=== PATIENT | female | born 1980 | race Caucasian/White ===

== ENCOUNTER 2020-12-15 11:19 | Emergency (ER) | payer BC, SELFPAY ==
--- NOTE | 2020-12-15 11:27 | ED.EAR ---
HPI - Ear Problem General Chief complaint: Ear Stated complaint: Possible Ear Infection Time Seen by Provider: 12/15/20 11:28 Source: patient and RN notes reviewed History of Present Illness HPI Narrative: Patient is a 40-year-old female who presents the urgent care with complaints of left ear pain. Patient states that she has had some sharp shooting pains off and on for the last couple days and then yesterday she noticed pain in front of the left ear and behind the left ear. Patient denies of any other upper respiratory complaints. Denies of fever, chills, nausea, vomiting. Patient has not taken anything [id number] for her pain. No other acute complaints. No acute distress noted. Patient aware of the plan of care. Some parts of this dictation were generated by voice recognition software and may contain typographical and/or grammatical inaccuracies. Related Data Allergies Allergy/AdvReac Type Severity Reaction Status Date / Time cephalexin Allergy Unknown Verified 04/26/16 15:00 Review of Systems Review of Systems: CONSTITUTIONAL: Denies fever, chills, or sweats. EYES: Denies visual changes, redness, or discharge. ENT: Denies rhinorrhea, congestion, sore throat. Reports of left otalgia CARDIOVASCULAR: Denies chest pain, palpitations, or edema. RESPIRATORY: Denies cough or dyspnea. GASTROINTESTINAL: Denies abdominal pain, nausea, vomiting, or diarrhea. GENITOURINARY: Denies dysuria or hematuria. SKIN: Denies rash or itching. MUSCULOSKELETAL: Denies back pain, joint pain, or myalgia. NEUROLOGIC: Denies headache, numbness, or weakness. All other systems reviewed are negative, except as documented in HPI. PMFSH Social History Social History Smoking status: Heavy tobacco smoker Alcohol intake: current Comments At the time of my signature, I reviewed and agree with the nursing past medical, surgical, social, and family history. There is no relevant family history pertinent to the patient complaint. Exam Narrative: GENERAL: This is a well-nourished, well-developed patient, in no apparent distress. HEAD: normocephalic, atraumatic. EYES: PERRL. Sclera clear/white. Vision is grossly intact. EARS: External ears normal, auditory canals clear and without drainage, TMs normal without perforation. Hearing grossly intact. Mild left periauricular lymphadenopathy with mild to moderate tenderness behind the ear NOSE: External nose normal with no obvious nasal discharge, nares without redness, no rhinorrhea. THROAT: Mucous membranes moist, posterior pharynx clear. NECK: Neck supple CARDIOVASCULAR: Regular rate and rhythm without murmurs, gallops, or rubs. RESPIRATORY: Clear to auscultation. Breath sounds equal bilaterally. No wheezes, rales, or rhonchi. SKIN: warm, intact with no suspicious lesions or rash, good texture and turgor. NEURO: awake, alert, and oriented to person, place and time. There were no obvious focal neurologic abnormalities. EXTREMITIES: No clubbing, cyanosis, or edema. Course Vital Signs Vital signs: Vital Signs Temperature 98.8 F 12/15/20 11:31 Pulse Rate 75 12/15/20 11:31 Respiratory Rate 18 12/15/20 11:31 Blood Pressure 128/78 12/15/20 11:31 Pulse Oximetry 100 12/15/20 11:31 Temperature 98.8 F 12/15/20 11:31 Pulse Rate 75 12/15/20 11:31 Respiratory Rate 18 12/15/20 11:31 Blood Pressure 128/78 12/15/20 11:31 Pulse Oximetry 100 12/15/20 11:31 Reviewed Medical Decision Making MDM Narrative Medical decision making narrative: Advised the patient to complete the antibiotic regimen as prescribed. Be sure to eat and drink with the medication. Use Tylenol/ibuprofen as needed for pain. Use a warm compress to the ear for comfort. If you develop any increase in pain associated with severe headache, fever, nausea, vomiting?go to the emergency room. Follow-up with referred PCP for worsening symptoms or failure to improve, as well to obtain a primary care physician. Cheri
[2020-12-15 11:31] VITALS: BP 128/78; PULSE 75; RESP 18; TEMP 37.1; O2SAT 100
== END 2020-12-15 11:53 | disposition home or self-care (01) ==
PROVIDERS: Emergency Provider Nurse Practitioner Family
DX: R59.0 Localized enlarged lymph nodes (principal)
CPT/HCPCS: 99213; G0463

== ENCOUNTER 2021-01-05 13:31 | Outpatient (CLI) | payer BC, SELFPAY ==
--- NOTE | ~2021-01-05 | XR_ITS ---
EXAMINATION: XR chest 2V DATE: 01/05/2021 14:05 INDICATION: Constipation and bloating. TECHNIQUE: Frontal and lateral views of the chest were obtained. COMPARISON: None. FINDINGS: The chest demonstrates clear lungs without pneumonia, pleural effusion, or pneumothorax. Th e heart size is normal. IMPRESSION: 1. No acute cardiopulmonary disease. Reviewed, dictated and finalized at location A.
== END 2021-01-05 13:32 | disposition home or self-care (01) ==
LOC: ANHLAB 13:35
PROVIDERS: PCP Emergency Medicine; Visit Provider Emergency Medicine
DX: R22.1 Localized swelling, mass and lump, neck (principal)
CPT/HCPCS: 71046

== ENCOUNTER 2021-01-20 09:29 | Outpatient (CLI) | payer BC, SELFPAY ==
--- NOTE | ~2021-01-20 | US_ITS ---
EXAMINATION: US thyroid DATE: 01/20/2021 11:09 INDICATION: Thyroid enlargement. TECHNIQUE: Multiple ultrasound images of the thyroid were obtained. COMPARISON: None. FINDINGS: The right thyroid lobe measures 6.1 x 2.9 x 2.7 cm. The left thyroid lobe measures 5.9 x 2.1 x 2.4 c m. The thyroid demonstrates diffusely coarsened echotexture and hypoechoic echogenicity. No discrete nodule to warrant biopsy. Vascularity is normal. IMPRESSION: 1. Heterogeneous thyroid, which may be chronic lymphocytic (Anthony) thyroiditis or multinodular go iter, likely benign. Reviewed, dictated and finalized at location A. IMPRESSION: 1. Heterogeneous thyroid, which may be chronic lymphocytic (Anthony) thyroidi tis or multinodular goiter, likely benign.
== END 2021-01-20 09:30 | disposition home or self-care (01) ==
LOC: ANHIMG 09:38
PROVIDERS: PCP Emergency Medicine; Visit Provider Emergency Medicine
DX: R22.1 Localized swelling, mass and lump, neck (principal)
CPT/HCPCS: 76536

== ENCOUNTER 2021-03-04 14:25 | Outpatient (CLI) | payer SELFPAY ==
--- NOTE | ~2021-03-04 | US_ITS ---
EXAMINATION: US pelvic complete DATE: 03/04/2021 14:43 INDICATION: Adnexal mass Comparison:No prior studies for comparison. TECHNIQUE: Multiple transabdominal sonographic images of the pelvis performed. FINDINGS: The uterus measures 8.4 x 4.4 x 6 cm. The endometrial complex measures 9 mm. The right ovary measures 4.6 x 3.1 x 3.7 cm and the left ovary measures 2.7 x 2.4 x 3.3 cm. There is a complicated cyst of the right ovary measuring 3.4 cm, likely hemorrhagic. There are small follicles in each ovary. Normal doppler signal in both ovaries. There is no free fluid in the pelvis. There are no abnormal masses seen on either side. IMPRESSION: 1. Complicated 3.4 cm right ovarian cyst. Reviewed, dictated and finalized at location B. CAL MANAGER
== END 2021-03-04 14:26 ==
PROVIDERS: Visit Provider Emergency Medicine
DX: E04.9 Nontoxic goiter, unspecified (principal); N83.201 Unspecified ovarian cyst, right side
CPT/HCPCS: 76856

== ENCOUNTER → 2021-04-28 02:32 | Outpatient (CLI) | payer BC, SELFPAY ==
[2021-04-28 15:12] LABS: SARS-CoV-2 RNA PCR Negative
== END ==
PROVIDERS: Visit Provider Obstetrics & Gynecology
DX: Z01.812 Encounter for preprocedural laboratory examination (principal); Z20.822 Contact with and (suspected) exposure to COVID-19
CPT/HCPCS: C9803; U0003; U0005

== ENCOUNTER 2021-04-28 09:00 | Outpatient (CLI) | payer BC, SELFPAY ==
--- NOTE | 2021-04-28 09:15 | ECG_ITS ---
Measurements Intervals [place] Rate: 64 P: 76 NJ: 145 QRS: 72 QRSD: 80 T: 68 QT: 367 QTc: 381 Interpretive Statements SINUS RHYTHM DELAYED PRECORDIAL R/S TRANSITION BORDERLINE ECG Electronically Signed On 04-28-2021 9:25:00 ART EDUCATOR by Murphy Broussard D.O.
== END 2021-04-28 09:01 | disposition home or self-care (01) ==
LOC: ANHSURGERY 09:05
PROVIDERS: PCP Emergency Medicine; Visit Provider Obstetrics & Gynecology
DX: Z01.818 Encounter for other preprocedural examination (principal); F17.200 Nicotine dependence, unspecified, uncomplicated; R94.31 Abnormal electrocardiogram [ECG] [EKG]
CPT/HCPCS: 93005

== ENCOUNTER 2021-05-01 00:37 | Day surgery (SDC) | payer BC, SELFPAY ==
[2021-04-27 12:56] VITALS: BMI 23.8
--- NOTE | 2021-04-27 13:05 | PC.NURSE ---
Report to the Outpatient Waiting Room, entrance under the green pavilion located off [facility], at time 11:00 on date 05/01/21. OR Time: 1:00. - You will be asked a series of questions to screen for COVID 19 for your protection. - A mask is required within the hospital. - No visitors are allowed at this time. Preoperative COVID Testing Requirements: COVID TEST 04/28 AT 9:00 No COVID Test needed if: (proof is required; if not received patient will have Rapid Test prior to entry) - Patient has received COVID Vaccine at least 14 days prior to procedure date or - Patient has positive COVID test result within last 90 days of surgery date. COVID Test needed if above criteria is not met If not COVID vaccinated a COVID test must be conducted within 72 hours of surgery and patient is asked to isolate self from time of testing until procedure. You will go to the [facility] for your COVID testing. The [facility] site is located at the corner of [address] [facility]. You will only be called if COVID results are positive and your surgeon may reschedule your elective surgery date. Patients may have clear liquids (water, carbonated beverages, clear teas, apple juice) until 3 hours prior to surgery (10:00) with a maximum of 20 ounces. - No food from midnight until time of surgery Take the following medications with a SIP of water the morning of surgery: EUTHYROX Medications to discontinue per physician: N/A Date to take last dose: N/A Please no make-up, nail costa rican, hairspray, perfume, deodorant, or body powder the day of surgery. No jewelry (including any body piercings) or valuables the day of surgery, leave them at home. Please take a shower or bath the night before, or the morning of, surgery with an antibacterial soap. Wear comfortable, loose fitting clothing. - Jewelry must be removed prior to entering the operating room. Rings and piercings that are not removed may be cut off. - The hospital will not accept responsibility for valuables. - Please leave all valuables, including medications, at home the day of surgery. If you are going home after surgery, a licensed hydraulic lift driver must drive you home. - NO public transportation without another adult. - We recommend that an adult stay with you for 24 hours following discharge. - We also recommend that you do not drive, make important decision, drink alcoholic beverages, or take any drugs that were not prescribed by your health care provider for at least 24 hours after your discharge time. Follow any additional instructions given to you from your surgeon. Telephone instructions given to POLA GARCIA and asked if any additional questions and then verbalized understanding. Patient advised to call surgeon office or pre surgery nurse liaison [phone] if any additional questions.
[2021-05-01] VITALS (11 sets, daily range): BP systolic 93–132; BP diastolic 48–77; PULSE 62–83; RESP 14–20; TEMP 36.2–36.9; O2SAT 94–100
[2021-05-01] MEDS: ACETAMINOPHEN 500 MG TABLET 1000 MG PO (11:55)
[2021-05-01] MEDS: LACTATED RINGERS 1,000 ML 30 ML IV CONT ×2 (12:07→14:45)
[2021-05-01] MEDS: KETOROLAC 15 MG/ML VIAL (*BKC) IV PUSH (12:10)
--- NOTE | 2021-05-01 12:59 | WPDHPUPDATE1 ---
History and Physical Update Update Date/Time: 05/01/21 12:59 History and Physical has been reviewed, including an updated exam of the patient. There are NO changes in the patient's condition. Risks, benefits, and alternatives have been discussed and questions answered. Patient agrees to proceed with procedure.
--- NOTE | 2021-05-01 13:03 | WPDANESEPP ---
Anes - Eval Pre Procedure Procedure: Operation Date: 05/01/21 13:00 Proposed Procedures p Laparoscopic Right Salpingo-Oophorectomy - RNadeem De Paz MD Date/Time: 05/01/21 13:03 Surgeon: Baldev Pre Op Diagnosis: right ovarian cyst Patient Data Age: 41 Gender: F Height: 1.57 m Weight: 56.9 kg Last Vital Signs Temp 98.4 F 05/01/21 11:55 Pulse 65 05/01/21 11:55 Resp 16 05/01/21 11:55 BP 100/58 L 05/01/21 11:55 Pulse Ox 99 05/01/21 11:55 Allergies Allergy/AdvReac Type Severity Reaction Status Date / Time cephalexin Allergy Intermediate Hives Verified 05/01/21 11:47 Home Medications Medication Instructions Recorded Confirmed Type levothyroxine [Euthyrox] 125 mcg PO DAILY 04/27/21 05/01/21 History Patient hx anesthesia problems: none Family hx anesthesia problems: none Results Review: All pre-operative results and documents have been reviewed as part of the pre-operative evaluation. [facility] Social History Social History Smoking packs per day: 1 Smoking cigarettes per day: 20.0 Years smoked: 25 Smoking pack-years: 25.00 Smoking status: Current every day smoker Tobacco type: cigarettes Alcohol intake: current Alcohol use details: RARE Substance use: current Substance use type: marijuana Last use: 04/27/21 Living arrangements: with family Spiritual care concerns: No Exam Day of Procedure 05/01/21 13:03 Patient weight: normal Heart: regular rate and rhythm Lungs: clear to auscultation Airway: Mallampati scale class 1 Neurological: alert and oriented
--- NOTE | 2021-05-01 13:04 | WPDANESEFPP ---
Anes - Eval Final PreProcedure Day of Procedure 05/01/21 13:04 Patient weight: normal Heart: regular rate and rhythm Lungs: clear to auscultation Airway: Mallampati scale class 1 Neurological: alert and oriented Last oral intake: >/= 8 hours ASA classification: II Emergent: no Anesthetic plan: proceed Anesthesia type and monitoring: general ETT and standard monitoring Results Review: All pre-operative results and documents have been reviewed as part of the pre-operative evaluation. Informed Consent: The patient's anesthetic plan and its attendant risks and benefits were discussed with the patient/family/POA. Questions were solicited and answers provided to the satisfaction of the patient/family/POA.
--- NOTE | 2021-05-01 14:36 | W.PM.PROC2 ---
Procedure Note - Detailed Date of Procedure 05/01/21 Pre-op Diagnosis right ovarian cyst Post-op Diagnosis same (Endometriosis, pelvic adhesions, 2 endometriomas of the right ovary.) Procedure Performed Laparoscopic right salpingo-oophorectomy, adhesiolysis - 30 minutes, resection and fulguration endometriosis. Surgeon Elida De Paz MD Anesthesia general Indications Pelvic pain, endometriomas Findings Endometrial implants there was 2 large endometrial pass of the left zofia posterior cul-de-sac there were 2 large endometrial implants in the left adnexa lateral to the fallopian tube anteriorly. There was an endometrial implant that was large and contained old blood on the uterine fundus. There were 2 large endometriomas in the right ovary. The bilateral ovaries were adherent to the lateral pelvic sidewalls. Description of Procedure The patient was taken to the operating room. She was prepped and draped in the dorsal lithotomy position after induction general anesthesia. A 5 mm incision was made with a scalpel on the abdominal skin in the left upper quadrant of the abdomen. A 5 mm trocar was inserted into the intra-abdominal cavity under direct visualization the scope. In the same fashion a 11 mm left lower quadrant trocar was inserted and a 11 mm infraumbilical trocar was inserted. Right salpingo-oophorectomy was performed. The right ureter was identified. The right infundibulopelvic ligament was identified and cauterized transected near the ovary. The para ovarian tissue was cauterized transected the stepwise fashion around the ovary to the round ligament. The mesosalpinx between the fallopian tube and its round ligament was cauterized transected down to the level of the cornu of the uterus in a stepwise fashion with LigaSure cautery. The ovary and fallopian tube were then amputated at the uterine cornua with LigaSure. The ovary tube into ovarian cyst were placed in the endobag and taken at the left lower quadrant trocar site. The left ovary was suspended using a Matthew-Bruce Endoclose needle. This was placed through the left lower quadrant trocar with an 0 Vicryl suture. The suture was then pushed through the ovary with the Matthew-Bruce Endoclose and the suture was grasped on the the side of the ovary. The sutures then grasped at the end and drawn back through the abdominal wall and held into place with a hemostat. The ovaries then suspended tightly near the anterior abdominal wall. Areas of endometriosis around the ovary and tube on the left side were resected using sharp and blunt dissection and LigaSure. All the peritoneum on the left side of the posterior cul-de-sac was removed from the fallopian tube medially to the rectum and from the pelvic brim down to the uterine arteries. The ureter was dissected out from the pelvic brim to the uterine arteries and found to be intact during that dissection. Endometriosis on the uterine fundus was cauterized with unipolar cautery. As was implants in the deep posterior cul-de-sac. Adhesiolysis had been performed to separate the ovaries from the lateral pelvic sidewalls. This required about 30 minutes. This was done with sharp and blunt dissection with deference to the underlying ureters. The pelvis was irrigated. Interceed was placed over the left zofia the posterior cul-de-sac. The pneumoperitoneum was reduced. The trocars were removed. Skin was closed with subcuticular 4 micro. The patient's incisions were covered with Dermabond. She was taken recovery room in stable condition. Sponge lap and needle counts were correct x2. Estimated Blood Loss 20 Packing No Pathology yes Complications No immediate complications Condition stable Disposition same day
[2021-05-01] MEDS: ONDANSETRON INJ 4 MG/2 ML VIAL IV PUSH (15:16)
[2021-05-01] MEDS: fentaNYL CITRATE INJ (*CRX) 100 MCG/2 ML VIAL 25 MCG IV PUSH ×4 (15:21→15:38)
[2021-05-01] MEDS: diphenhydrAMINE HCl INJ 50 MG/ML VIAL 25 MG IV PUSH ×2 (15:47→15:53)
[2021-05-01] MEDS: SCOPOLAMINE 1.5 MG PATCH TRANSDERM (15:48)
== END 2021-05-01 17:26 | disposition home or self-care (01) ==
PROVIDERS: PCP Emergency Medicine; Visit Provider Obstetrics & Gynecology
PROC: (CPT 49320; principal; 2021-05-01 13:00)
DX: N80.1 Endometriosis of ovary (principal); N80.3 Endometriosis of pelvic peritoneum; N80.2 Endometriosis of fallopian tube; N80.0 Endometriosis of uterus; N73.6 Female pelvic peritoneal adhesions (postinfective); F17.210 Nicotine dependence, cigarettes, uncomplicated; R10.2 Pelvic and perineal pain
CPT/HCPCS: 58661; 58662; 88305; 93005; A9270; C9803; J1100; J1200; J1885; J2250; J2405; J2704; J2710; J3010; J7030; J7120; U0003; U0005

== ENCOUNTER 2022-10-18 09:29 | Outpatient (CLI) | payer BC, SELFPAY ==
--- NOTE | ~2022-10-18 | CT_ITS ---
EXAMINATION: CT brain wo con DATE: 10/18/2022 10:00 INDICATION: Dizziness. Neck pain. TECHNIQUE: Computed tomography (CT) of the head was performed without intravenous contrast. The mA wa s adjusted according to patient size. Iterative reconstruction technique was employed. The dose-lengt h product was 645.69 mGy-cm. COMPARISON: None FINDINGS: There is no intracranial hemorrhage, acute infarction, or abnormal intracranial mass lesion . The ventricles are normal in size. The orbits are normal. There is mucosal thickening in the parana chantelle sinuses. The mastoid air cells are normal. IMPRESSION: 1. Normal brain. Reviewed, dictated and finalized at location A. IMPRESSION: 1. Normal brain.
--- NOTE | ~2022-10-18 | XR_ITS ---
Clinical Indication: Thyroid mass, Dizziness PA and lateral views of the chest: Comparison: 01/05/2021 Findings: The lungs are clear, without evidence of focal consolidation or pleural effusion. Cardiome diastinal silhouette is within normal limits. Possible focal fracture of the left seventh rib. Impression: Clear lungs. Possible focal fracture left seventh rib. Correlate for point tenderness. Reviewed, dictated and finalized at location . Impression: Clear lungs. Possible focal fracture left seventh rib. Correlate for point tenderness.
--- NOTE | ~2022-10-18 | XR_ITS ---
XR_CERV2-3V_CR DATE: 10/18/2022 10:08 INDICATION: Back/neck mass. Dizziness. Thyroid mass. TECHNIQUE: AP, open-mouth, lateral views COMPARISON: None FINDINGS: There is reversal of cervical curvature. C1 and C2 are normally aligned and the odontoid process is intact. Minimal anterolisthesis at C3-4. Mild to moderate degenerative disc disease at C4-5 and C5-6. Mild uncovertebral joint spurring bilaterally at C5-6. IMPRESSION: Reversal of cervical curvature Minimal anterolisthesis at C3-4 Moderate moderate degenerative disc disease at C4-5, C5-C6 Mild uncovertebral joint spurring bilaterally at C5-6 Reviewed, dictated and finalized at Location A. Reviewed, dictated and finalized at location B.
--- NOTE | ~2022-10-18 | CT_ITS ---
EXAMINATION: CT cervical spine wo con DATE: 10/18/2022 10:00 INDICATION: Neck mass. TECHNIQUE: Computed tomography (CT) of the cervical spine was performed without intravenous contrast. Automated exposure control and iterative reconstruction technique were employed. The dose-length pro duct was 189.15 mGy-cm. COMPARISON: None FINDINGS: There is mild kyphosis of cervical spine. Vertebral body heights are normal. There is mildl y decreased disc height at C4-C5 and moderately decreased disc height at C5-C6. The following disc le vels are specifically discussed: C2-C3: There is mild left uncovertebral joint osteoarthritis. There is moderate right and mild left f acet joint osteoarthritis. There is no neural foraminal stenosis. There is no central canal stenosis. C3-C4: There is no uncovertebral joint osteoarthritis. There is mild bilateral facet joint osteoarthr itis. There is no neural foraminal stenosis. There is no central canal stenosis. C4-C5: There is mild bilateral uncovertebral joint osteoarthritis. There is no facet joint osteoarthr itis. There is no neural foraminal stenosis. There is mild central canal stenosis. C5-C6: There is severe bilateral uncovertebral joint osteoarthritis. There is no facet joint osteoart hritis. There is mild bilateral neural foraminal stenosis. There is mild central canal stenosis. C6-C7: There is no uncovertebral joint osteoarthritis. There is no facet joint osteoarthritis. There is no neural foraminal stenosis. There is no central canal stenosis. C7-T1: There is no uncovertebral joint osteoarthritis. There is severe right and moderate left facet joint osteoarthritis. There is mild right neural foraminal stenosis. There is no central canal stenos is. IMPRESSION: 1. Moderate cervical spondylosis. Reviewed, dictated and finalized at location A.
--- NOTE | ~2022-10-18 | CT_ITS ---
EXAMINATION: CT soft tissue neck wo con DATE: 10/18/2022 10:00 INDICATION: Neck mass. TECHNIQUE: Computed tomography (CT) of the neck was performed with 75 mL Omnipaque-350 intravenous co ntrast. Automated exposure control and iterative reconstruction technique were employed. The dose-narinder gth product was 369.87 mGy-cm. COMPARISON: Thyroid ultrasound 01/20/2021 FINDINGS: There is mild emphysema. There are no pathologically enlarged lymph nodes. There are calcif ications in the palatine tonsils. The orbits are normal. There is mild mucosal thickening in the para nasal sinuses. The mastoid air cells are normal. There is moderate cervical spondylosis. IMPRESSION: 1. No abnormal neck mass or lymphadenopathy. 2. Mild emphysema. Reviewed, dictated and finalized at location A.
== END 2022-10-18 09:30 ==
PROVIDERS: PCP Emergency Medicine; Visit Provider Emergency Medicine
DX: R42 Dizziness and giddiness (principal); E04.9 Nontoxic goiter, unspecified; M50.322 Other cervical disc degeneration at C5-C6 level; M47.892 Other spondylosis, cervical region; J43.9 Emphysema, unspecified
CPT/HCPCS: 70450; 70490; 71046; 72040; 72125

== ENCOUNTER 2022-10-20 08:25 | Outpatient (CLI) | payer BC, SELFPAY ==
--- NOTE | ~2022-10-20 | US_ITS ---
EXAMINATION: US thyroid DATE: 10/20/2022 08:55 INDICATION: Thyroid mass. TECHNIQUE: Multiple ultrasound images of the thyroid were obtained. COMPARISON: None. FINDINGS: The right thyroid lobe measures 4.7 x 2.3 x 1.8 cm. The left thyroid lobe measures 5.3 x 1.3 x 1.6 c m. The thyroid is diffusely heterogeneous and hypoechoic. Vascularity is normal. No discrete nodule. IMPRESSION: 1. Heterogeneous thyroid, likely chronic lymphocytic (Anthony) thyroiditis. Reviewed, dictated and finalized at location A.
== END 2022-10-20 08:26 ==
PROVIDERS: PCP Emergency Medicine; Visit Provider Emergency Medicine
DX: R06.2 Wheezing (principal); E04.9 Nontoxic goiter, unspecified; Z72.0 Tobacco use
CPT/HCPCS: 76536

== ENCOUNTER 2022-10-20 08:56 | Outpatient (CLI) | payer BC, SELFPAY ==
[2022-10-20 14:46] LABS: Hemoglobin 13.9 g/dL (12.0-15.0); Mean Corpuscular HGB Conc 31.6 g/dl (32-36); Mean Corpuscular Hemoglobin 29.4 pg (26-34); Mean Corpuscular Volume 93.2 fl (80-100); Mean Platelet Volume 10.5 fl (7.4-10.4); Platelet Count Result 260 k/mm3 (150-375); Red Blood Count 4.72 M/mm3 (4.2-5.4); Red Cell Distribution Width 15.1 % (11.5-14.5)
[2022-10-20 15:18] LABS: Erythrocyte Sedimentation Rate 3 mm/hr (0-20)
[2022-10-20 15:22] LABS: MALB Creatinine Ratio 6.8 mg/g (0-30); Microalbumin Urine Random 7.8 mg/L (0-16.7)
[2022-10-20 15:28] LABS: Iron 157 ug/dL (37-170)
[2022-10-20 15:45] LABS: Free T4 Free Thyroxine 2.56 ng/mL (0.78-2.19)
[2022-10-20 15:49] LABS: Alanine Aminotransferase 23 U/L (6-35); Albumin Level 4.7 g/dL (3.5-5.1); Alkaline Phosphatase 44 U/L (38-126); Anion Gap 5 mmol/L (8-16); Aspartate Amino Transferase 40 U/L (14-36); Bilirubin,Total 0.5 mg/dL (0.2-1.3); Blood Urea Nitrogen 12 mg/dL (7-17); Calcium 8.9 mg/dL (8.4-10.2); Carbon Dioxide 31 mmol/L (22-30); Chloride 104 mmol/L (98-107); Cholesterol 116 mg/dL (0-200); Creatine Kinase 93 U/L (30-135); Estimated Glomerular Filt Rate > 60; Glucose 107 mg/dL (65-110); HDL Direct 39 mg/dL; Potassium 3.8 mmol/L (3.4-5.0); Sodium 140 mmol/L (137-145); Triglycerides 89 mg/dL (<150)
[2022-10-20 15:55] LABS: Rheumatoid Factor < 12.0 IU/ML (<12)
[2022-10-20 16:04] LABS: LDL Cholesterol Direct 53 mg/dL
[2022-10-20 16:20] LABS: Thyroid Stimulating Hormone 0.459 uIU/mL (0.465-4.680); Total Triiodothyronine (T3) 1.29 NG/ML (0.97-1.69)
[2022-10-20 16:38] LABS: Hepatitis B Surface Antigen Negative (Negative)
[2022-10-20 16:44] LABS: HAV RESULT Negative (Negative); Hepatitis B Core IgM Result Negative (Negative)
[2022-10-20 16:56] LABS: Hepatitis C Virus Antibody Negative (Negative)
[2022-10-23 08:14] LABS: Thyroid Peroxidase Antibodies 785 IU/mL (<9)
[2022-10-23 23:00] LABS: Vitamin D 1,25 (OH)2 Total 46 pg/mL (18-72); Vitamin D2 1,25 (OH)2 <8 pg/mL; Vitamin D3 1,25 (OH)2 46 pg/mL
== END 2022-10-20 08:57 | disposition home or self-care (01) ==
LOC: ANHGOSHLAB 09:01
PROVIDERS: PCP Emergency Medicine; Visit Provider Emergency Medicine
DX: E03.9 Hypothyroidism, unspecified (principal); E55.9 Vitamin D deficiency, unspecified; N18.9 Chronic kidney disease, unspecified; E04.9 Nontoxic goiter, unspecified; D72.829 Elevated white blood cell count, unspecified
CPT/HCPCS: 36415; 80053; 80061; 80074; 82043; 82550; 82652; 83540; 84439; 84443; 84480; 85027; 85652; 86038; 86376; 86430